=== PATIENT | female | born 1960 | race African-American/Black ===

== ENCOUNTER 2019-09-01 14:23 | Emergency (ER) | payer MEDICARE, MEDICAID, BC ==
[~2019-09-01] VITALS: Ht 162.6 cm; Wt 113.0 kg
[~2019-09-01 14:23] MED LIST: GLUCOTROL; JANUVIA
[2019-09-01 17:02] VITALS: BP 147/90
== END 2019-09-01 17:05 | disposition home or self-care (01) ==
LOC: ER 14:52
DX: M62.838 Other muscle spasm (principal); M25.512 Pain in left shoulder; I48.91 Unspecified atrial fibrillation; I11.9 Hypertensive heart disease without heart failure
CPT/HCPCS: 99283

== ENCOUNTER 2019-09-20 04:40 | Emergency (ER) | payer MEDICARE, MEDICAID ==
[~2019-09-20] VITALS: Ht 165.1 cm; Wt 86.0 kg
[2019-09-20] MEDS ORDERED: METOPROLOL TARTRATE 5MG/5ML VIAL IV SCH ×2 (05:30→06:20)
[2019-09-20] MEDS: METOPROLOL TARTRATE 5MG/5ML VIAL IV SCH ×3 (06:35→06:45)
[2019-09-20 09:01] LABS: BASOPHILS % 0.3 % (0.0-2.0); EOSINOPHILS % 0.7 % (0.0-5.0); LYMPHOCYTES % 25.9 % (20.0-50.0); MEAN CORPUSCULAR HEMOGLOBIN 28.9 pg (28.0-32.0); MEAN CORPUSCULAR VOLUME 91.3 fL (81.0-99.0); MEAN PLATELET VOLUME 10.1 fl (7.4-10.4); MONOCYTES % 7.7 % (2.0-8.0); NEUTROPHILS % 65.4 % (40.0-76.0); PLATELET 303 x1000/uL (130-400); RED BLOOD CELL COUNT 4.16 mill/uL (4.2-5.4); RED CELL DISTRIBUTION WIDTH 14.4 % (11.6-14.6)
[2019-09-20 09:07] LABS: CHLORIDE 105 mEq/L (98-107)
[2019-09-20 14:16] VITALS: BP 104/64
== END 2019-09-20 15:00 | disposition short-term general hospital (02) ==
LOC: ER 04:40 → CANBEDREQ 20:04
DX: R07.9 Chest pain, unspecified (principal); J44.9 Chronic obstructive pulmonary disease, unspecified; E11.9 Type 2 diabetes mellitus without complications; I10 Essential (primary) hypertension; I48.91 Unspecified atrial fibrillation; R00.2 Palpitations
CPT/HCPCS: 36415; 71045; 80053; 83880; 84484; 85025; 93005; 96374; 99285; J3490